=== PATIENT | male | born 1985 | race Caucasian/White ===

== ENCOUNTER 2022-10-26 18:33 | Emergency (ER) | payer BC, OTHER ==
[2022-10-26 18:52] VITALS: BMI 50.2
[2022-10-26] MEDS ORDERED: methylPREDNISolone NA SUCC 125 MG/2 ML VIAL IVPUSH ONE (21:20)
[2022-10-26] MEDS ORDERED: ACETAMINOPHEN 1000 MG/100 ML BAG IVPB ONE (21:20)
[2022-10-26] MEDS ORDERED: METOCLOPRAMIDE HCL INJECTION 10 MG/2 ML VIAL IVPUSH ONE (21:20)
[2022-10-26] MEDS ORDERED: MAGNESIUM SULF 50% (8.12 MEQ/2 ML-1 GM VIAL) IVPB ONE (21:22)
[2022-10-26] MEDS ORDERED: SODIUM CHLORIDE 1,000 ML IV STA (21:22)
[2022-10-26] MEDS ORDERED: ACETAMINOPHEN INJECTION 100 ML IVPB ONE (21:28)
[2022-10-26] MEDS ORDERED: METOCLOPRAMIDE HCL INJECTION 10 MG/2 ML VIAL ONE (21:28)
[2022-10-26] MEDS ORDERED: methylPREDNISolone NA SUCC 125 MG/2 ML VIAL ONE (22:04)
[2022-10-26] MEDS ORDERED: MAGNESIUM 1GM/D5W - 1 GM/100 ML IVPB IVPB ONE (22:04)
[2022-10-26 22:06] LABS: BASO % 0.7 % (0-2.0); EOS % 1.5 % (0-4.5); HEMATOCRIT 46.9 % (35.4-49); LYMPH % 20.2 % (8-40); MCH 28.8 pg (25.7-33.7); MCHC 34.1 g/dl (32.0-35.9); MEAN CELL VOLUME 84.7 fl (80-96); MONO % 9.4 % (3.8-10.2); NEUT % 68.2 % (42.8-82.8); PLATELET COUNT 310 10^3/uL (134-434); RBC 5.54 M/mm3 (4.00-5.60); RDW 14.3 % (11.9-15.9)
[2022-10-26 22:30] LABS: ALBUMIN 4.3 g/dl (3.4-5.0); BLOOD UREA NITROGEN 12.9 mg/dL (7-18); CALCIUM 9.7 mg/dL (8.5-10.1); MAGNESIUM 2.2 mg/dL (1.8-2.4)
[2022-10-26 22:33] LABS: CREATININE 0.8 mg/dL (0.55-1.3)
[2022-10-26 22:35] LABS: BILIRUBIN,TOTAL 0.7 mg/dL (0.2-1); TOT PROT 8.7 g/dl (6.4-8.2)
[2022-10-27] MEDS ORDERED: KETOROLAC TROMETHAMINE 30 MG/1 ML VIAL IVPUSH ONE (00:44)
[2022-10-27 00:47] VITALS: BP 129/79; PULSE 64; RESP 20; TEMP 98.7
[2022-10-27] MEDS ORDERED: KETOROLAC TROMETHAMINE 30 MG/1 ML VIAL ONE (00:48)
== END 2022-10-27 01:28 | disposition home or self-care (01) ==
LOC: JER 18:33
PROC: 3E033NZ Introduction of Analgesics, Hypnotics, Sedatives into Peripheral Vein, Percutaneous Approach (ICD-10-PCS; principal; 2022-10-26)
PROC: 3E033GC Introduction of Other Therapeutic Substance into Peripheral Vein, Percutaneous Approach (ICD-10-PCS; 2022-10-26)
PROC: 3E033GC Introduction of Other Therapeutic Substance into Peripheral Vein, Percutaneous Approach (ICD-10-PCS; 2022-10-26)
PROC: 3E0333Z Introduction of Anti-inflammatory into Peripheral Vein, Percutaneous Approach (ICD-10-PCS; 2022-10-27)
DX: R51.9 Headache, unspecified (principal); H53.8 Other visual disturbances; R42 Dizziness and giddiness; R11.2 Nausea with vomiting, unspecified; Z20.822 Contact with and (suspected) exposure to COVID-19
CPT/HCPCS: 0241U-QW; 36415; 70450-TC; 80053; 83735; 85025; 99284-25

== ENCOUNTER 2022-10-30 08:02 | Emergency (ER) | payer BC, OTHER ==
[2022-10-30 08:17] VITALS: BP 131/76; PULSE 65; RESP 20; TEMP 98.2; BMI 50.2
[2022-10-30] MEDS ORDERED: METOCLOPRAMIDE HCL INJECTION 10 MG/2 ML VIAL IVPB ONE (08:55)
[2022-10-30] MEDS ORDERED: ACETAMINOPHEN 1000 MG/100 ML BAG IVPB ONE (08:55)
[2022-10-30] MEDS ORDERED: SODIUM CHLORIDE 0.9% 500 ML INFUS.BAG IV ONE (08:55)
[2022-10-30] MEDS ORDERED: DEXAMETHASONE SOD PHOSPHATE 10 MG/1 ML VIAL IVPUSH ONE (08:55)
[2022-10-30] MEDS ORDERED: ACETAMINOPHEN INJECTION 100 ML IVPB ONE (09:00)
[2022-10-30] MEDS ORDERED: DEXAMETHASONE SOD PHOSPHATE 10 MG/1 ML VIAL ONE (09:01)
[2022-10-30] MEDS ORDERED: METOCLOPRAMIDE HCL INJECTION 10 MG/2 ML VIAL ONE (09:01)
[2022-10-30 09:33] LABS: EOS % 1.9 % (0-4.5); HEMATOCRIT 45.7 % (35.4-49); HEMOGLOBIN 15.8 GM/dL (11.7-16.9); LYMPH % 22.1 % (8-40); MCH 29.4 pg (25.7-33.7); MCHC 34.5 g/dl (32.0-35.9); MEAN CELL VOLUME 85.2 fl (80-96); MEAN PLT VOLUME 8.6 fl (7.5-11.1); MONO % 8.3 % (3.8-10.2); NEUT % 66.7 % (42.8-82.8); PLATELET COUNT 299 10^3/uL (134-434); RBC 5.37 M/mm3 (4.00-5.60); RDW 14.2 % (11.9-15.9); WHITE BLOOD COUNT 9.4 K/mm3 (4.0-10.0)
[2022-10-30 09:52] LABS: ALBUMIN 4.3 g/dl (3.4-5.0); CALCIUM 9.9 mg/dL (8.5-10.1)
[2022-10-30 09:53] LABS: BLOOD UREA NITROGEN 14.8 mg/dL (7-18)
[2022-10-30 09:56] LABS: CREATININE 0.9 mg/dL (0.55-1.3)
[2022-10-30 09:57] LABS: BILIRUBIN,TOTAL 0.6 mg/dL (0.2-1); TOT PROT 8.3 g/dl (6.4-8.2)
== END 2022-10-30 11:37 | disposition home or self-care (01) ==
LOC: JER 08:02 → JERFT 08:02
PROC: 3E0333Z Introduction of Anti-inflammatory into Peripheral Vein, Percutaneous Approach (ICD-10-PCS; principal; 2022-10-30)
PROC: 3E033GC Introduction of Other Therapeutic Substance into Peripheral Vein, Percutaneous Approach (ICD-10-PCS; 2022-10-30)
PROC: 3E033GC Introduction of Other Therapeutic Substance into Peripheral Vein, Percutaneous Approach (ICD-10-PCS; 2022-10-30)
DX: R51.9 Headache, unspecified (principal); R20.0 Anesthesia of skin; R06.02 Shortness of breath; Z20.822 Contact with and (suspected) exposure to COVID-19
CPT/HCPCS: 0241U-QW; 36415; 71046-TC-FY; 80053; 84439; 84443; 85025; 93005; 93010; 99284-25; J1100

== ENCOUNTER 2022-11-04 19:11 | Inpatient (IN) | payer BC, OTHER ==
[2022-11-04 19:18] VITALS: BMI 50.2
[2022-11-04] MEDS ORDERED: METOCLOPRAMIDE HCL INJECTION 10 MG/2 ML VIAL IVPUSH ONE (21:00)
[2022-11-04] MEDS ORDERED: ACETAMINOPHEN 1000 MG/100 ML BAG IVPB ONE (21:00)
[2022-11-04] MEDS ORDERED: LACTATED RINGERS SOLUTION 1000 ML INFUS.BAG IV ONE (21:00)
[2022-11-04] MEDS ORDERED: ACETAMINOPHEN INJECTION 100 ML IVPB ONE (21:12)
[2022-11-04] MEDS ORDERED: METOCLOPRAMIDE HCL INJECTION 10 MG/2 ML VIAL ONE (21:12)
[2022-11-04 21:47] LABS: BASO % 1.2 % (0-2.0); EOS % 2.2 % (0-4.5); HEMATOCRIT 43.3 % (35.4-49); HEMOGLOBIN 15.4 GM/dL (11.7-16.9); LYMPH % 23.5 % (8-40); MCH 29.7 pg (25.7-33.7); MCHC 35.6 g/dl (32.0-35.9); MEAN CELL VOLUME 83.5 fl (80-96); MEAN PLT VOLUME 8.7 fl (7.5-11.1); MONO % 8.1 % (3.8-10.2); PLATELET COUNT 323 10^3/uL (134-434); RBC 5.19 M/mm3 (4.00-5.60); RDW 15.3 % (11.9-15.9); WHITE BLOOD COUNT 12.6 K/mm3 (4.0-10.0)
[2022-11-04 21:54] LABS: INR 1.05 (0.83-1.09); PROTHROMBIN TIME (PATIENT) 12.2 SEC (9.7-13.0)
[2022-11-04 21:57] LABS: ACTIVATED PTT 33.5 SECONDS (25.2-36.5)
[2022-11-04 22:06] LABS: CHLORIDE 100 mmol/L (98-107)
[2022-11-04 22:08] LABS: BLOOD UREA NITROGEN 18.6 mg/dL (7-18); CO2 26 mmol/L (21-32)
[2022-11-04 22:09] LABS: GLUCOSE,RANDOM 79 mg/dL (74-106)
[2022-11-04 22:12] LABS: CREATININE 0.9 mg/dL (0.55-1.3)
[2022-11-04 22:13] LABS: TOT PROT 10.1 g/dl (6.4-8.2)
[2022-11-04 22:42] LABS: ALBUMIN 3.2 g/dl (3.4-5.0); ANION GAP -12 MMOL/L (8-16); CALCIUM 8.4 mg/dL (8.5-10.1); SODIUM 114 mmol/L (136-145)
[2022-11-05 00:09] LABS: ALBUMIN 3.7 g/dl (3.4-5.0); BLOOD UREA NITROGEN 17.4 mg/dL (7-18)
[2022-11-05 00:12] LABS: CREATININE 0.8 mg/dL (0.55-1.3)
[2022-11-05 00:13] LABS: BILIRUBIN,TOTAL 0.9 mg/dL (0.2-1)
[2022-11-05 00:36] LABS: TOT PROT 7.4 g/dl (6.4-8.2)
[2022-11-05] MEDS ORDERED: SUMATRIPTAN SUCCINATE 6 MG/0.5 ML VIAL SQ ONE ×2 (03:04→14:15)
[2022-11-05] MEDS ORDERED: SUMATRIPTAN SUCCINATE 6 MG/0.5 ML VIAL ONE (03:19)
[2022-11-05 04:14] VITALS: RESP 18
[2022-11-05] MEDS ORDERED: KETOROLAC TROMETHAMINE 15 MG/ML VIAL IVPUSH PRN (05:31)
[2022-11-05] MEDS ORDERED: diphenhydrAMINE HCL 25 MG CAPSULE (FP) PO PRN (05:31)
[2022-11-05] MEDS ORDERED: diphenhydrAMINE HCL 25 MG CAPSULE (FP) PO ONE (05:53)
[2022-11-05] MEDS ORDERED: METOCLOPRAMIDE HCL 10 MG TABLET (FP) PO ONE (05:55)
[2022-11-05] MEDS ORDERED: KETOROLAC TROMETHAMINE 15 MG/ML VIAL IVPUSH ONE (05:56)
[2022-11-05] MEDS ORDERED: LEVOTHYROXINE PO SCH (07:00)
[2022-11-05] MEDS ORDERED: METOCLOPRAMIDE HCL 10 MG TABLET (FP) PO SCH (07:00)
[2022-11-05 09:25] LABS: BASO % 0.9 % (0-2.0); EOS % 2.5 % (0-4.5); HEMOGLOBIN 14.7 GM/dL (11.7-16.9); LYMPH % 24.5 % (8-40); MCH 29.6 pg (25.7-33.7); MCHC 34.9 g/dl (32.0-35.9); MEAN CELL VOLUME 84.8 fl (80-96); MEAN PLT VOLUME 8.3 fl (7.5-11.1); MONO % 7.4 % (3.8-10.2); NEUT % 64.7 % (42.8-82.8); PLATELET COUNT 292 10^3/uL (134-434); RBC 4.96 M/mm3 (4.00-5.60); RDW 14.4 % (11.9-15.9); WHITE BLOOD COUNT 8.9 K/mm3 (4.0-10.0)
[2022-11-05 09:53] LABS: ALBUMIN 3.4 g/dl (3.4-5.0); BLOOD UREA NITROGEN 15.2 mg/dL (7-18); CALCIUM 9.1 mg/dL (8.5-10.1)
[2022-11-05 09:55] LABS: BILIRUBIN,TOTAL 0.7 mg/dL (0.2-1); TOT PROT 6.9 g/dl (6.4-8.2)
[2022-11-05 09:56] LABS: CREATININE 0.8 mg/dL (0.55-1.3)
[2022-11-05 09:57] LABS: CHOLESTEROL 157 mg/dL (50-200)
[2022-11-05 09:58] LABS: LDL CHOLESTEROL (ONLY SJRH) 106 mg/dL (5-100)
[2022-11-05 09:59] LABS: PHOSPHOROUS 3.6 mg/dL (2.5-4.9)
[2022-11-05 10:00] LABS: HDL CHOLESTEROL 36 mg/dL (40-60)
[2022-11-05] MEDS ORDERED: LEVOTHYROXINE NA 200 MCG TABLET PO SCH (10:00)
[2022-11-05] MEDS ORDERED: ENOXAPARIN NA (PORCINE) 40 MG/0.4 ML DISP.SYRIN SQ SCH (10:00)
[2022-11-05] MEDS ORDERED: predniSONE 20 MG TABLET (UD) PO SCH (10:15)
[2022-11-05 17:15] VITALS: BP 137/78; PULSE 85; TEMP 97.6
== END 2022-11-05 17:45 | disposition short-term general hospital (02) | DRG 103 ==
LOC: JERFT 19:11 → JERBED 11-05 01:42 → J6S 11-05 03:38
PROVIDERS: ADMIT Internal Medicine; ATTEND Internal Medicine
DX: G44.009 Cluster headache syndrome, unspecified, not intractable (principal); Z68.43 Body mass index [BMI] 50.0-59.9, adult; E03.9 Hypothyroidism, unspecified; E66.01 Morbid (severe) obesity due to excess calories
CPT/HCPCS: 0241U-QW; 36415; 70481-TC; 80053; 80061; 83735; 84100; 84439; 84443; 84480; 85025; 85610; 85730; 86140; 93005; 93010; 99285-25; Q9967

== ENCOUNTER 2022-11-06 11:56 | Emergency (ER) | payer BC, OTHER ==
[2022-11-06 12:32] VITALS: TEMP 98.5; BMI 49.1
[2022-11-06] MEDS ORDERED: METOCLOPRAMIDE HCL INJECTION 10 MG/2 ML VIAL IVPUSH ONE (12:56)
[2022-11-06] MEDS ORDERED: ACETAMINOPHEN 1000 MG/100 ML BAG IVPB ONE (12:56)
[2022-11-06] MEDS ORDERED: LACTATED RINGERS SOLUTION 1,000 ML/1,000 ML INFUS.BAG IV SCH (13:00)
[2022-11-06] MEDS ORDERED: METOCLOPRAMIDE HCL INJECTION 10 MG/2 ML VIAL ONE (13:29)
[2022-11-06] MEDS ORDERED: ACETAMINOPHEN INJECTION 100 ML IVPB ONE (13:29)
[2022-11-06 13:55] LABS: BASO % 0.8 % (0-2.0); HEMATOCRIT 45.2 % (35.4-49); HEMOGLOBIN 15.6 GM/dL (11.7-16.9); LYMPH % 26.5 % (8-40); MCH 29.5 pg (25.7-33.7); MCHC 34.4 g/dl (32.0-35.9); MEAN CELL VOLUME 85.8 fl (80-96); MEAN PLT VOLUME 7.8 fl (7.5-11.1); MONO % 7.1 % (3.8-10.2); NEUT % 63.6 % (42.8-82.8); PLATELET COUNT 303 10^3/uL (134-434); RBC 5.26 M/mm3 (4.00-5.60); RDW 14.2 % (11.9-15.9); WHITE BLOOD COUNT 9.9 K/mm3 (4.0-10.0)
[2022-11-06 14:26] LABS: ALBUMIN 3.8 g/dl (3.4-5.0); BLOOD UREA NITROGEN 16.4 mg/dL (7-18); CALCIUM 8.9 mg/dL (8.5-10.1)
[2022-11-06 14:29] LABS: CREATININE 0.9 mg/dL (0.55-1.3)
[2022-11-06 14:31] LABS: BILIRUBIN,TOTAL 0.5 mg/dL (0.2-1); TOT PROT 7.7 g/dl (6.4-8.2)
[2022-11-06 17:32] VITALS: BP 135/92; PULSE 100; RESP 20
== END 2022-11-06 17:37 | disposition short-term general hospital (02) ==
LOC: JER 11:56
PROC: 3E033NZ Introduction of Analgesics, Hypnotics, Sedatives into Peripheral Vein, Percutaneous Approach (ICD-10-PCS; principal; 2022-11-06)
PROC: 3E033GC Introduction of Other Therapeutic Substance into Peripheral Vein, Percutaneous Approach (ICD-10-PCS; 2022-11-06)
DX: H02.401 Unspecified ptosis of right eyelid (principal); H57.11 Ocular pain, right eye; R51.9 Headache, unspecified; Z20.822 Contact with and (suspected) exposure to COVID-19
CPT/HCPCS: 0241U-QW; 36415; 70496-TC; 70498-TC; 80053; 85025; 93005; 93010; 99285-25